=== PATIENT | female | born 2000 | race Caucasian/White ===

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

== ENCOUNTER 2020-04-08 15:18 | Emergency (ER) | payer MEDICAID ==
--- NOTE | 2020-04-08 15:48 | ER Document Report ---
ED Medical Screen (RME) - General Chief Complaint: Vomiting Stated Complaint: VOMITING Time Seen by Provider: 04/08/20 15:33 Primary Care Provider: RUBEN PHELAN MD [Primary Care Provider] - Follow up as needed TRAVEL OUTSIDE OF THE [place] IN LAST 30 DAYS: No - HPI Notes: 04/08/20 15:49 Patient is a 20-year-old G3, P1 SpAB1, female with complaints of nausea and vomiting. She is 6 weeks and has been nauseous for the last week and a half. The vomiting started yesterday. Reports 12 episodes of emesis yesterday and 9 episodes today. She has been unable to keep any food or liquids down in the past 24 hours. PAtient does report hyperemesis in her last which resolved at approximately 16 weeks. SHe is being [facility]. SHe is supposed to get an US in about 2 weeks. Denies pelvic pain, abdominal cramping, vaginal bleeding, gush of fluid, or back pain. I performed a brief medical screening exam on the patient determined that the patient needs further evaluation and management by main side provider. I have placed initial orders to help expedite care. 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 Denies: Hx Hepatitis, Hx Hiatal Hernia, Hx Ulcer Psychiatric Medical History: Reports: Hx Anxiety - Anxiety/hyperventilation Infectious Medical History: Denies: Hx Hepatitis Past Surgical History: Reports: Hx Cholecystectomy, Hx Oral Surgery - wisdom, Hx Tonsillectomy - adenoids. Denies: Hx Hysterectomy, Hx Mastectomy, Hx Open Heart Surgery, Hx Pacemaker - Immunizations Immunizations up to date: Yes Hx Diphtheria, Pertussis, Tetanus Vaccination: Yes Physical Exam - Vital signs Vitals: Temp Pulse Resp BP Pulse Ox 98.1 F 112 H 16 149/82 H 100 04/08/20 15:22 04/08/20 15:22 04/08/20 15:22 04/08/20 15:22 04/08/20 15:22 Course - Vital Signs Vital signs: Temp Pulse Resp BP Pulse Ox 98.1 F 112 H 16 149/82 H 100 04/08/20 15:22 04/08/20 15:22 04/08/20 15:22 04/08/20 15:22 04/08/20 15:22 Doctor's Discharge - Discharge Referrals: RUBEN PHELAN MD [Primary Care Provider] - Follow up as needed
[2020-04-08] MEDS ORDERED: NORMAL SALINE 1000 ML 1,000 ML IV ONE (15:49)
[2020-04-08] MEDS ORDERED: METOCLOPRAMIDE HCL INJ/PF 10 MG/2 ML SDV IV ONE (15:49)
[2020-04-08 16:12] LABS: ABSOLUTE LYMPHOCYTES (AUTO) 1.8 10^3/uL (0.5-4.7); ABSOLUTE MONOCYTES (AUTO) 0.5 10^3/uL (0.1-1.4); ABSOLUTE NEUT (AUTO) 7.8 10^3/uL (1.7-8.2); BASOPHILS % (AUTO) 0.5 % (0-2); EOSINOPHILS % (AUTO) 0.2 % (0-6); HEMATOCRIT 38.4 % (36.0-47.0); HEMOGLOBIN 13.9 g/dL (12.0-15.5); LYMPHOCYTES % (AUTO) 17.7 % (13-45); MEAN CORPUSCULAR HEMOGLOBIN 31.4 pg (27.0-33.4); MEAN CORPUSCULAR HGB CONC 36.3 g/dL (32.0-36.0); MEAN CORPUSCULAR VOLUME 87 fl (80-97); PLATELET COUNT 262 10^3/uL (150-450); RED BLOOD COUNT 4.43 10^6/uL (3.72-5.28); RED CELL DISTRIBUTION WIDTH 13.4 % (11.5-14.0); SEGMENTED NEUTROPHILS % (AUTO) 76.6 % (42-78); TOTAL CELLS COUNTED % (AUTO) 100 %; WHITE BLOOD COUNT 10.1 10^3/uL (4.0-10.5)
[2020-04-08 16:18] LABS: APPEARANCE,URINE SLIGHTLY-CLOUDY; BILIRUBIN,URINE NEGATIVE (NEGATIVE); COLOR,URINE AMBER; GLUCOSE, URINE NEGATIVE (NEGATIVE); KETONES,URINE TRACE mg/dL (NEGATIVE); PROTEIN,URINE 30 mg/dL (NEGATIVE); URINE SPECIFIC GRAVITY 1.029
[2020-04-08 16:34] LABS: ALBUMIN 4.7 g/dL (3.5-5.0); ALKALINE PHOSPHATASE 94 U/L (38-126); ANION GAP 12 (5-19); ASPARTATE AMINO TRANSFERASE 32 U/L (14-36); BILIRUBIN,DIRECT 0.3 mg/dL (0.0-0.4); BILIRUBIN,TOTAL 0.9 mg/dL (0.2-1.3); BLOOD UREA NITROGEN 9 mg/dL (7-20); CALCIUM 9.8 mg/dL (8.4-10.2); CARBON DIOXIDE 24 mmol/L (22-30); CHLORIDE 101 mmol/L (98-107); GLUCOSE 97 mg/dL (75-110); POTASSIUM 3.8 mmol/L (3.6-5.0); TOTAL PROTEIN 7.8 g/dL (6.3-8.2)
--- NOTE | 2020-04-08 17:05 | ER Document Report ---
ED GI/ - General Chief Complaint: Vomiting Stated Complaint: VOMITING Time Seen by Provider: 04/08/20 15:33 Primary Care Provider: RUBEN PHELAN MD [ACTIVE STAFF] - Follow up as needed Notes: CHIEF COMPLAINT: Vomiting HPI: 20-year-old female who is approximately 6 weeks presenting for multiple episodes of vomiting in the last 24 hours. States she cannot hold anything down. Did not call her DINING ROOM MANAGER about her symptoms. Has taken no medications for nausea. Denies pelvic or abdominal pain denies vaginal bleeding or discharge. Denies back pain. ROS: See HPI - all other systems were reviewed and are otherwise negative Constitutional: no fever Eyes: no drainage, no blurred vision ENT: no runny nose, no sore throat Cardiovascular: no chest pain Resp: no SOB, no cough GI: + vomiting, no diarrhea, no abdominal pain : no dysuria Integumentary: no rash Allergy: no hives Musculoskeletal: no extremity pain or swelling Neurological: no numbness/tingling, no weakness MEDICATIONS: I agree with the patient medications as charted by the RN. ALLERGIES: I agree with the allergies as charted by the RN. PAST MEDICAL HISTORY/PAST SURGICAL HISTORY: Reviewed and agree as charted by RN. SOCIAL HISTORY: Reviewed and agree as charted by RN. FAMILY HISTORY: No significant familial comorbid conditions directly related to patient complaint EXAM: Reviewed vital signs as charted by RN. CONSTITUTIONAL: Alert and oriented and responds appropriately to questions. Well-appearing; well-nourished HEAD: Normocephalic; atraumatic EYES: PERRL; Conjunctivae clear, sclerae non-icteric ENT: normal nose; no rhinorrhea; moist mucous membranes; pharynx without lesions noted, no uvula edema or deviation, no tonsillar hypertrophy, phonation normal NECK: Supple without meningismus; non-tender; no cervical lymphadenopathy, no masses CARD: RRR; no murmurs, no clicks, no rubs, no gallops; symmetric distal pulses RESP: Normal chest excursion without splinting or tachypnea; breath sounds clear and equal bilaterally; no wheezes, no rhonchi, no rales, pulse oximetry 98% on room air not hypoxic ABD/GI: Obese, normal bowel sounds; non-distended; soft, non-tender, no rebound, no guarding; no palpable organomegaly or masses. BACK: The back appears normal and is non-tender to palpation, there is no CVA tenderness EXT: Normal ROM in all joints; non-tender to palpation; no cyanosis, no effusions, no edema SKIN: Normal color for age and race; warm; dry; good turgor; no acute lesions noted NEURO: Moves all extremities equally; Motor and sensory function intact PSYCH: The patient's mood and manner are appropriate. Grooming and personal hygiene are appropriate. MDM: 20-year-old female 6 weeks by dates presenting with multiple episodes of vomiting with no pelvic or abdominal pain. No vaginal complaints. Likely hyperemesis. Initial screening labs and orders placed via triage process. TRAVEL OUTSIDE OF THE [place] 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 Denies: Hx Hepatitis, Hx Hiatal Hernia, Hx Ulcer Psychiatric Medical History: Reports: Hx Anxiety - Anxiety/hyperventilation Infectious Medical History: Denies: Hx Hepatitis Past Surgical History: Reports: Hx Cholecystectomy, Hx Oral Surgery - wisdom, Hx Tonsillectomy - adenoids. Denies: Hx Hysterectomy, Hx Mastectomy, Hx Open Heart Surgery, Hx Pacemaker - Immunizations Immunizations up to date: Yes Hx Diphtheria, Pertussis, Tetanus Vaccination: Yes Physical Exam - Vital signs Vitals: Temp Pulse Resp BP Pulse Ox 98.1 F 112 H 16 149/82 H 100 04/08/20 15:22 04/08/20 15:22 04/08/20 15:22 04/08/20 15:22 04/08/20 15:22 Course - Re-evaluation Re-evalutation: 04/08/20 18:31 Patient feels much better. No further vomiting. Requesting to drink and go home. We will keep patient on Reglan at home. Follow-up DINING ROOM MANAGER - Vital Signs Vital signs: Temp Pulse Resp BP Pulse Ox 98.1 F 112 H 16 149/82 H 100 04/08/20 15:22 04/08/20 15:22 04/08/20 15:22 04/08/20 15:22 04/08/20 15:22 - Laboratory Result Diagrams: 04/08/20 15:58 04/08/20 15:58 Laboratory results interpreted by me: 04/08/20 04/08/20 04/08/20 15:58 15:58 15:58 MCHC 36.3 H ALT 43 H Urine Protein 30 H Urine Ketones TRACE H Urine Urobilinogen 4.0 H Leukocyte Esterase Rfl MODERATE H Discharge - Discharge Clinical Impression: Hyperemesis Condition: Stable Disposition: HOME, SELF-CARE Additional Instructions: Take Reglan for nausea vomiting. Continue to push fluids at home. Follow-up with your DINING ROOM MANAGER for further evaluation and treatment call for appointment Prescriptions: Metoclopramide HCl [Reglan 10 mg Tablet] 10 mg PO Q6HP PRN #20 tablet PRN Reason: Referrals: RUBEN PHELAN MD [ACTIVE STAFF] - Follow up as needed
[2020-04-08 18:49] VITALS: BP 129/60
== END 2020-04-08 18:49 | disposition home or self-care (01) ==
LOC: ER 15:18
DX: O21.9 Vomiting of pregnancy, unspecified (principal); Z3A.01 Less than 8 weeks gestation of pregnancy
CPT/HCPCS: 99284; 96361; 96374; 36415; 85025; 80053; 81001; J2765; J7030